=== PATIENT | male | born 1975 | race Caucasian/White ===

== ENCOUNTER 2018-03-21 12:40 | Day surgery (SDC) | payer OTHER ==
[2018-03-21] MEDS ORDERED: PROPOFOL 40 ML (14:26)
[2018-03-21] MEDS ORDERED: LIDOCAINE 2% (SDV) 5 ML INJ (14:26)
== END 2018-03-21 16:44 | disposition home or self-care (01) ==
LOC: GIL 12:40
DX: K21.0 Gastro-esophageal reflux disease with esophagitis (principal); K22.70 Barrett's esophagus without dysplasia
CPT/HCPCS: 43239; 88305; 88313

== ENCOUNTER 2018-06-19 13:36 | Day surgery (SDC) | payer OTHER ==
[~2018-06-19 13:36] MED LIST: CEFAZOLIN 1 GM INJ; DESFLURANE 15 MIN
[2018-06-19] MEDS ORDERED: FENTAnyl 50 MCG/ML VIAL (14:48)
[2018-06-19] MEDS ORDERED: BUPIVACAINE 0.5% (SDV) 30 ML INJ (15:27)
[2018-06-19] MEDS ORDERED: LIDOCAINE 1% (MPF) 30 ML INJ (15:27)
[2018-06-19] MEDS ORDERED: DIPHENHYDRAMINE 50 MG INJ IV (15:30)
[2018-06-19] MEDS ORDERED: OXYCODONE/ACETAMINOPHEN (5/325) TAB PO ×2 (15:30)
[2018-06-19] MEDS ORDERED: FENTAnyl 50 MCG/ML VIAL IV ×2 (15:30)
[2018-06-19] MEDS ORDERED: HYDROmorphONE 1 MG/5 ML IV SYRINGE IV ×2 (15:30)
[2018-06-19] MEDS ORDERED: PROPOFOL 20 ML ×2 (15:41→16:03)
[2018-06-19] MEDS ORDERED: MIDAZOLAM 1 MG/ML 2 ML INJ (15:41)
[2018-06-19] MEDS ORDERED: ONDANSETRON 4 MG INJ (15:42)
[2018-06-19] MEDS ORDERED: METOCLOPRAMIDE 10 MG INJ (15:42)
[2018-06-19] MEDS: BUPIVACAINE 0.5% (MPF) 30 ML INJ INJ (16:08)
[2018-06-19] MEDS: LIDOCAINE 1% (MPF) 30 ML INJ INJ (16:08)
[2018-06-19] MEDS: MEPERIDINE 25 MG INJ IV (16:43)
[2018-06-19] MEDS: HYDROmorphONE 1 MG/5 ML IV SYRINGE IV (16:43)
[2018-06-19] MEDS: ONDANSETRON 4 MG INJ IV (16:44)
[2018-06-19] MEDS: FENTAnyl 50 MCG/ML VIAL IV ×2 (16:46→16:52)
== END 2018-06-19 17:59 | disposition home or self-care (01) ==
LOC: SDS 13:36
DX: G56.02 Carpal tunnel syndrome, left upper limb (principal)
CPT/HCPCS: 64721